=== PATIENT | male | born 1995 | race Caucasian/White ===

== ENCOUNTER 2020-03-25 09:24 | Emergency (ER) | payer OTHER ==
[2020-03-25 09:33] VITALS: BP 125/66
--- NOTE | 2020-03-25 09:35 | ED Physician Documentation ---
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 He does not have any decrease in his visual acuity or inability to move his eye. He does have some injection of the sclera. Review of Systems Constitutional: denies: Fever Eyes: reports: Irritation. denies: Loss of vision, Decreased vision, Photophobia, Discharge Ears: denies: Ear pain Nose: denies: Rhinorrhea / runny nose, Congestion Respiratory: denies: Cough GI: denies: Vomiting PD PAST MEDICAL HISTORY - Present Medications Home Medications: Ambulatory Orders Medication Instructions Recorded Confirmed Neomycin/Poly/Dex Ophth Drops 2 drops LEFTEYE QID #1 bottle 03/25/20 [Maxitrol Ophth Drops] - Allergies Allergies/Adverse Reactions: Allergies Allergy/AdvReac Type Severity Reaction Status Date / Time No Known Drug Allergies Allergy Verified 03/25/20 09:30 PD ED PE NORMAL - Vitals Vital signs reviewed: Yes (Normal) - General General: Alert and oriented X 3, No acute distress, Well developed/nourished - HEENT HEENT: Atraumatic, PERRL, EOMI, Other (There is a 1 mm metallic foreign body in the cornea central. There are no other foreign objects in the sclera cornea or conjunctive a the lid is everted without evidence of foreign material. There is no distortion of the globe iris or pupil.) - Neck Neck: Supple, no meningeal sign, No bony TTP - Respiratory Respiratory: No respiratory distress - Derm Derm: Normal color, Warm and dry, No rash - Extremities Extremities: No deformity, No edema - Neuro Neuro: Alert and oriented X 3, brush filler hand 2-12 intact, No motor deficit, No sensory deficit, Normal speech Eye Opening: Spontaneous Motor: Obeys Commands Verbal: Oriented GCS Score: 15 - Psych Psych: Normal mood, Normal affect Results - Vitals Vitals: Vital Signs - 24 hr 03/25/20 09:31 Temperature 36.8 C Heart Rate 65 Respiratory 15 Rate Blood Pressure 125/66 O2 Saturation 99 Oxygen O2 Source Room air Procedures - FB removal FB location: Other (eye) FB removal preparation: Other (proparicaine) Removal method: Other (#27 needle followed by irrigation) FB removal aftercare: No complications, Patient tolerated well, Removed anthony ccessfully PD MEDICAL DECISION MAKING - ED course Complexity details: considered differential, d/w patient ED course: 24-year-old male with metallic foreign body in the left cornea has the foreign body successfully removed with a #27 needle and there is no evidence of a rust ring. The patient's eyes were flushed and we will place him on some Maxitrol. Departure - Departure Disposition: 01 Home, Self Care Clinical Impression: Corneal foreign body Qualifiers: Encounter type: initial encounter Laterality: left Qualified Code(s): T15.02XA - Foreign body in cornea, left eye, initial encounter Condition: Stable Instructions: ED Foreign Body Cornea Follow-Up: Lambert Nails MD [Provider Admit Priv/Credential] - Prescriptions: Neomycin/Poly/Dex Ophth Drops [Maxitrol Ophth Drops] 2 drops LEFTEYE QID #1 bottle
[2020-03-25] MEDS ORDERED: PROPARACAINE 0.5% OPHTH DROPS 15 ML LEFTEYE STA (09:39)
== END 2020-03-25 10:08 | disposition home or self-care (01) ==
LOC: ED 09:24
DX: T15.02XA Foreign body in cornea, left eye, initial encounter (principal); X58.XXXA Exposure to other specified factors, initial encounter; Y93.89 Activity, other specified; Y99.0 Civilian activity done for income or pay
CPT/HCPCS: 1040M; 65220; 99282; 99284; J3490; 65210